=== PATIENT | female | born 1980 | race Caucasian/White ===

== ENCOUNTER 2020-01-14 13:32 | Outpatient (CLI) | payer BC, SELFPAY ==
[2020-01-14 14:30] LABS: Lithium 0.3 mmol/L (0.6-1.2)
== END 2020-01-14 13:33 | disposition home or self-care (01) ==
LOC: ANHSURGERY 13:38
PROVIDERS: Anesthesiology; PCP Family Medicine; Visit Provider Obstetrics & Gynecology
DX: Z51.81 Encounter for therapeutic drug level monitoring (principal)
CPT/HCPCS: 36415; 80178

== ENCOUNTER 2020-01-19 00:21 | Outpatient (CLI) | payer BC, SELFPAY ==
[2020-01-19 19:01] LABS: SARS-CoV-2 RNA PCR Negative
== END 2020-01-19 00:22 | disposition home or self-care (01) ==
LOC: ANHCOVIDDT 00:21
PROVIDERS: PCP Family Medicine; Visit Provider Obstetrics & Gynecology
DX: Z01.818 Encounter for other preprocedural examination (principal); Z11.59 Encounter for screening for other viral diseases
CPT/HCPCS: 87635; C9803; U0003

== ENCOUNTER 2020-01-21 03:26 | Day surgery (SDC) | payer BC, SELFPAY ==
[2020-01-12 12:30] VITALS: BMI 22.8
[2020-01-21] VITALS (9 sets, daily range): BP systolic 89–116; BP diastolic 61–76; PULSE 55–84; RESP 13–16; TEMP 36.4–36.9; O2SAT 99–100
[2020-01-21] MEDS: LACTATED RINGERS 1,000 ML 30 ML IV CONT ×2 (09:20→11:35)
[2020-01-21] MEDS: ACETAMINOPHEN 500 MG TABLET 1000 MG PO (09:25)
[2020-01-21] MEDS: KETOROLAC 15 MG/ML VIAL (*BKC) IV PUSH (09:26)
--- NOTE | 2020-01-21 09:32 | PM.IMHP ---
H&P: HPI History of Present Illness Chief complaint: Desires Sterilization Narrative: 39 y/o desiring permanent contraception. She desires no further childbearing. Review of Systems Review of Systems: All systems reviewed & are unremarkable except as noted in HPI and below PMFSH Past Medical History Medical History Bipolar 1 disorder IBS (irritable bowel syndrome) Surgical History Surgical History H/O breast surgery Family History Family History Other Asthma Family history of cardiac disorder Family history of thyroid disease Hypertension Social History Social History Smoking status: Never smoker Second hand tobacco smoke exposure: No Alcohol intake: current Drinks per week: 5 Spiritual care concerns: No Meds Home Medications and Allergies Home Medications Medication Instructions Recorded Confirmed Type amitriptyline 10 mg tablet 20 mg PO HS tablet 08/30/19 01/21/20 History beclomethasone dipropionate 80 80 mcg INHALATION BID 08/30/19 01/21/20 History mcg/actuation aerosol inhaler clonazepam 0.5 mg tablet 0.5 mg PO DAILY PRN 08/30/19 01/12/20 History cetirizine [Zyrtec] 10 mg PO DAILY 01/12/20 01/21/20 History lithium carbonate 300 mg PO BID 01/12/20 01/21/20 History Allergies Allergy/AdvReac Type Severity Reaction Status Date / Time latex AdvReac Mild IRRITATION Verified 01/21/20 08:58 Exam Const: Orientation/consciousness: patient oriented x3 Other: Well-developed, well-nourished female in no acute distress. Neck: Thyroid: thyroid normal Lymphatic: no lymphadenopathy noted (in neck, axilla or inguinal nodes) Resp: Effort & Inspection: normal respiratory effort Auscultation: clear to auscultation bilaterally Cardio: Rate: regular rate Rhythm: regular rhythm Heart sounds: S1 normal heart sound present and S2 normal heart sound present GI: Other: ABD: Soft, nontender, nondistended. No guarding or rebound tenderness. No hepatosplenomegaly. : General: Yes no CVA tenderness Other: External genitalia: normal female hair distribution, without lesion. Urethral meatus: no lesion, non prolapsed. Bladder: no mass, nontender Vagina: well-estrogenized, without lesion or discharge. No cystocele or rectocele. Cervix: no lesion or discharge. Uterus: small, anteverted, freely mobile, nontender Adnexa: no mass or tenderness. Anus/perineum: no lesions, nontender Back/Spine/Pelvis: Back: no CVA tenderness Skin: General skin exam: normal color and no rashes or lesions noted Neuro: General: patient oriented x3 Extrem: Other: Extremities: nontender with no edema Psych: Mental Status: mental status grossly normal Affect: normal affect Assessment and Plan Assessment and plan (1) Unwanted fertility: Code(s): Z30.09 - Encounter for other general counseling and advice on contraception Status: Acute Assessment and Plan: She understands there are temporary methods of contraception available to her. She understands that there are nonsurgical options as well as surgical options. She understands that tubal ligation will render her permanently sterile. She understands that there is a failure rate associated with tubal ligation, as well as an inherent ectopic gestation risk. Furthermore, she understands risks of surgery to include risks of anesthesia, risks of pain, infection, bleeding, blood products, thromboembolic phenomena and damage to adjacent structures such as bowel, bladder, ureters, blood vessels and nerves. She understands all these risks and elects to proceed with laparoscopic bilateral tubal ligation. She has received the [employer] pamphlet on surgical sterilization.
--- NOTE | 2020-01-21 10:11 | WPDANESEPPF ---
Anes - Initial Pre Proc Eval Procedure: Operation Date: 01/21/20 10:30 Proposed Procedures p Laparoscopic Bilateral Tubal Ligation With Fallopian Rings - Kar Borrero MD Date/Time: 01/21/20 10:11 Surgeon: Kar Borrero MD Pre Op Diagnosis: Desires Sterilization Patient Data Age: 39 Gender: F Height: 5 ft 6 in Weight: 64.6 kg Last Vital Signs Temp 97.5 F L 01/21/20 09:46 Pulse 78 01/21/20 09:46 Resp 16 01/21/20 09:46 BP 102/73 01/21/20 09:46 Pulse Ox 100 01/21/20 09:46 Allergies Allergy/AdvReac Type Severity Reaction Status Date / Time latex AdvReac Mild IRRITATION Verified 01/21/20 08:58 Home Medications Medication Instructions Recorded Confirmed Type amitriptyline 10 mg tablet 20 mg PO HS tablet 08/30/19 01/21/20 History beclomethasone dipropionate 80 80 mcg INHALATION BID 08/30/19 01/21/20 History mcg/actuation aerosol inhaler clonazepam 0.5 mg tablet 0.5 mg PO DAILY PRN 08/30/19 01/12/20 History cetirizine [Zyrtec] 10 mg PO DAILY 01/12/20 01/21/20 History lithium carbonate 300 mg PO BID 01/12/20 01/21/20 History Patient hx anesthesia problems: none Family hx anesthesia problems: none PMFSH Past Medical History Medical History (Updated 01/21/20 @ 10:11 by Christiano Camacho MD) Asthma Bipolar 1 disorder IBS (irritable bowel syndrome) Surgical History Surgical History H/O breast surgery Family History Family History Other Asthma Family history of cardiac disorder Family history of thyroid disease Hypertension Social History Social History Smoking status: Never smoker Second hand tobacco smoke exposure: No Alcohol intake: current Drinks per week: 5 Spiritual care concerns: No Anes - Eval Final PreProcedure Day of Procedure 01/21/20 10:11 Patient weight: normal Heart: regular rate and rhythm Lungs: clear to auscultation Airway: Mallampati scale class II Neurological: alert and oriented Last oral intake: >/= 8 hours ASA classification: II Emergent: no Anesthetic plan: proceed Anesthesia type and monitoring: general ETT and standard monitoring Informed Consent: The patient's anesthetic plan and its attendant risks and benefits were discussed with the patient/family/POA. Questions were solicited and answers provided to the satisfaction of the patient/family/POA.
--- NOTE | 2020-01-21 10:18 | SUR.PREOP ---
Up to bathroom.
--- NOTE | 2020-01-21 11:27 | PM.PROC ---
Procedure Note - Detailed Date of procedure: 01/21/20 Pre-op diagnosis: Desires Sterilization Desired sterility Post-op diagnosis: same Procedure performed: Laparoscopic bilateral tubal ligation with Falope rings Description of procedure: The patient was taken to the operating room where general endotracheal anesthesia was administered. She was prepared and draped in the usual sterile fashion in dorsal lithotomy position. The bladder was drained with a red rubber catheter. A sterile speculum was placed into the vagina. The anterior lip of the cervix was grasped with a single-tooth tenaculum. The acorn uterine manipulator was placed. The speculum was withdrawn. Gloves were changed and attention was turned the abdomen. An infraumbilical skin incision was made with a scalpel. The abdomen was tented and a 5mm bladeless trocar was advanced under direct laparoscopic visualization. Pneumoperitoneum was administered using carbon dioxide gas. A survey of the pelvis and abdomen revealed the findings noted above. A second skin incision was made in the midline above the symphysis pubis and an 8mm bladeless trocar was advanced under direct laparoscopic visualization. The fallopian tube on the right side was followed out to the fimbriated end for identification. It was then grasped in the midportion with the Falope ring applicator. The Falope ring was tented applied. A good loop of tube was noted to be distal to the ring. Hemostasis was excellent. The device was reloaded and the contralateral tube was similarly identified and ligated. An excellent application was noted here as well. A total of 6mL of 1% lidocaine was infiltrated into the serosa of the proximal tubes for postoperative anesthesia. The ports were withdrawn. The gas was allowed to escape. The skin incisions were reapproximated using interrupted subcuticular sutures of 4 0 Vicryl. Dermaflex was applied externally. The vaginal instrumentation was withdrawn and hemostasis was excellent here as well. Sponge, lap, needle and instrument counts were correct. The patient was awakened and taken to recovery room in stable condition. I was present and scrubbed through the entire procedure. Implants: Falope rings Anesthesia: GETA and local (1% lidocaine) Surgeon: Kar Borrero MD Estimated blood loss (mL): 5 Drains: No Packing: No Pathology: none sent Complications: None Condition: stable Disposition: PACU Findings: Unremarkable pelvis
--- NOTE | 2020-01-21 12:29 | SUR.PHASEI ---
1225; PT AWAKE AND RESTING QUIETLY. STATES PAIN 3-10. DOES NOT WANT IV PAIN MEDICINE AT THIS TIME. STATES ITS NOT THAT BAD PT READY TO SIT IN RECLINER AND HAVE PO FLUIDS
[2020-01-21] MEDS: ONDANSETRON INJ 4 MG/2 ML VIAL IV PUSH (13:37)
== END 2020-01-21 14:00 | disposition home or self-care (01) ==
PROVIDERS: PCP Family Medicine; Visit Provider Obstetrics & Gynecology
PROC: (CPT 58671; principal; 2020-01-21 10:30)
DX: Z30.2 Encounter for sterilization (principal); F31.9 Bipolar disorder, unspecified; J45.909 Unspecified asthma, uncomplicated; K58.9 Irritable bowel syndrome, unspecified
CPT/HCPCS: 58671; A4264; A9270; J1100; J1885; J2250; J2405; J2704; J7120

== ENCOUNTER → 2021-08-17 13:51 | Outpatient (CLI) | payer BC, SELFPAY ==
--- NOTE | ~2021-08-17 | MM_ITS ---
EXAMINATION: MM screening [facility] BI w sandoval HISTORY: Screening mammogram TECHNIQUE: Craniocaudal and mediolateral oblique 3-D tomosynthesis images were obtained and synthetic 2-D images were generated. CAD analysis was submitted and interpreted. COMPARISON: 02/24/2019, 12/08/2017 BREAST PARENCHYMAL COMPOSITION: There are scattered areas of fibroglandular density. FINDINGS: There is no evidence of suspicious mass, calcification, or architectural distortion to sugg est malignancy in either breast. There has been no suspicious interval change. IMPRESSION: 1. No mammographic evidence of malignancy. 2. Recommend routine screening mammography in one year. BI-RADS Category 1: Negative Reviewed, dictated and finalized at location A. IFIED LACTATION EDUCATOR
== END ==
PROVIDERS: PCP Family Medicine; Visit Provider Obstetrics & Gynecology
DX: Z12.31 Encounter for screening mammogram for malignant neoplasm of breast (principal)
CPT/HCPCS: 77063; 77067

== ENCOUNTER → 2021-08-17 13:54 | Outpatient (CLI) | payer BC, SELFPAY ==
--- NOTE | ~2021-08-17 | XR_ITS ---
XR_[id number]_CR DATE: 08/17/2021 14:55 INDICATION: Neck pain TECHNIQUE: Standing AP, lateral and open-mouth views COMPARISON: None FINDINGS: There is reversal of cervical curvature. There is moderate degenerative disc disease at C4-5 and severe degenerative disc disease at C5-6, wit h minimal retrolisthesis and moderately prominent posterior spurring at C5-6. C1 and C2 are normally aligned and the odontoid process is intact. No fracture, dislocation, locked f acet or prevertebral soft tissue swelling. IMPRESSION: Reversal of cervical curvature Moderate degenerative disc disease at C4-5 Severe degenerative disc disease, moderate posterior spurring and minimal retrolisthesis at C5-6 Reviewed, dictated and finalized at Location A. Reviewed, dictated and finalized at location A. STONE ERECTOR IMPRESSION: Reversal of cervical curvature Moderate degenerative disc disease at C4-5 Severe degenerative disc disease, moderate posterior spurring and minimal retro listhesis at C5-6
--- NOTE | ~2021-08-17 | XR_ITS ---
XR lumbar spine min 4V DATE: 08/17/2021 14:55 INDICATION: Low back pain TECHNIQUE: AP, lateral, bilateral oblique and coned lateral lumbosacral views COMPARISON: None FINDINGS: There is minimal lumbar levoscoliosis. Included lower thoracic and lumbar pedicles are intact. No fracture or bone destruction, spondylolysis or spondylolisthesis. There is minimal degenerative spurring of the lumbar spine. Lumbar and lumbosacral interspaces are re latively preserved. The sacroiliac joints are intact. IMPRESSION: Minimal levoscoliosis Minimal degenerative spurring Reviewed, dictated and finalized at location A. GER SHAREPOINT
== END ==
PROVIDERS: PCP Family Medicine; Visit Provider Nurse Practitioner
DX: M54.50 Low back pain, unspecified (principal); M53.82 Other specified dorsopathies, cervical region; M50.321 Other cervical disc degeneration at C4-C5 level; M77.8 Other enthesopathies, not elsewhere classified; M41.86 Other forms of scoliosis, lumbar region
CPT/HCPCS: 72040; 72110

== ENCOUNTER 2021-11-28 06:36 | Outpatient (CLI) | payer BC, SELFPAY ==
--- NOTE | ~2021-11-28 | MR_ITS ---
EXAMINATION: MR cervical spine wo con DATE: 11/28/2021 07:25 INDICATION: Neck pain. TECHNIQUE: Magnetic resonance imaging (MRI) of the cervical spine was performed without intravenous c ontrast. Sequences included sagittal T2-weighted FSE, sagittal T2-weighted FS FSE, sagittal T1-weight ed FSE, axial MERGE, and axial T2-weighted FSE. COMPARISON: Cervical spine radiographs 08/17/2021 FINDINGS: There is 4 degrees dextrocurvature of cervical spine. There is kyphosis of cervical spine. There is 2 mm retrolisthesis of C5 on C6. Vertebral body heights are normal. There is mildly decrease d disc height at C4-C5 and moderately decreased disc height at C5-C6 with endplate remodeling. The sp inal cord signal intensity is normal. The following disc levels are specifically discussed: C2-C3: The disc does not extend beyond the endplate margin. There is mild left uncovertebral joint os teoarthritis. There is mild right and moderate left facet joint osteoarthritis. There is no neural fo raminal stenosis. There is no central canal stenosis. C3-C4: The disc does not extend beyond the endplate margin. There is no uncovertebral joint osteoarth ritis. There is mild bilateral facet joint osteoarthritis. There is no neural foraminal stenosis. The re is no central canal stenosis. C4-C5: The disc is bulging with superimposed central extrusion. There is mild bilateral uncovertebral joint osteoarthritis. There is no facet joint osteoarthritis. There is no neural foraminal stenosis. There is mild central canal stenosis with ventral indentation of the spinal cord. C5-C6: The disc is bulging with superimposed left central extrusion. There is mild bilateral uncovert ebral joint osteoarthritis. There is no facet joint osteoarthritis. There is mild bilateral neural fo raminal stenosis. There is moderate central canal stenosis with ventral and dorsal indentation of the spinal cord. C6-C7: There is a central extrusion. There is no uncovertebral joint osteoarthritis. There is no face t joint osteoarthritis. There is no neural foraminal stenosis. There is no central canal stenosis. C7-T1: The disc does not extend beyond the endplate margin. There is no uncovertebral joint osteoarth ritis. There is moderate bilateral facet joint osteoarthritis. There is no neural foraminal stenosis. There is no central canal stenosis. IMPRESSION: 1. Moderate cervical spondylosis. Reviewed, dictated and finalized at location A.
--- NOTE | ~2021-11-28 | MR_ITS ---
EXAMINATION: MR lumbar spine wo con DATE: 11/28/2021 07:25 INDICATION: Dorsalgia, unspecified. TECHNIQUE: Magnetic resonance imaging (MRI) of the lumbar spine was performed without intravenous con trast. Sequences included sagittal T2-weighted FSE, sagittal T2-weighted FS FSE, sagittal T1-weighted FSE, and axial T2-weighted FSE. COMPARISON: Lumbar spine radiographs 08/17/2021 FINDINGS: There is 7 degrees levocurvature of lumbar spine. There is mild chronic anterior wedging of T12 vertebral body. There are Schmorl's nodes at most levels. L5 is a limbus vertebra. There is mild ly decreased disc height at L2-L3 and moderately decreased disc height at L5-S1. The distal spinal co rd signal intensity is normal. The conus medullaris is at L1. The following disc levels are specifica lly discussed: L1-L2: The disc does not extend beyond the endplate margin. There is mild bilateral facet joint osteo arthritis. There is no neural foraminal stenosis. There is no central canal stenosis. L2-L3: The disc is bulging with superimposed central extrusion. There is mild bilateral facet joint o steoarthritis. There is mild bilateral neural foraminal stenosis. There is mild central canal stenosi s. L3-L4: The disc does not extend beyond the endplate margin. There is mild bilateral facet joint osteo arthritis. There is no neural foraminal stenosis. There is no central canal stenosis. L4-L5: The disc is bulging. There is moderate right and mild left facet joint osteoarthritis. There i s mild bilateral neural foraminal stenosis. There is no central canal stenosis. L5-S1: The disc is bulging and has an annular fissure. There is mild left facet joint osteoarthritis. There is mild left neural foraminal stenosis. There is mild central canal stenosis. IMPRESSION: 1. Moderate lumbar spondylosis. Reviewed, dictated and finalized at location A.
== END 2021-11-28 06:37 | disposition home or self-care (01) ==
PROVIDERS: PCP Nurse Practitioner; Visit Provider Nurse Practitioner
DX: M54.2 Cervicalgia (principal); M54.9 Dorsalgia, unspecified; M47.816 Spondylosis without myelopathy or radiculopathy, lumbar region; M47.812 Spondylosis without myelopathy or radiculopathy, cervical region
CPT/HCPCS: 72141; 72148

== ENCOUNTER → 2022-02-01 12:07 | Outpatient (CLI) | payer BC, SELFPAY ==
--- NOTE | ~2022-02-01 | XR_ITS ---
EXAMINATION: XR foot LT 2V INDICATION: Left foot pain TECHNIQUE: Two views of the left foot are obtained. COMPARISON: None available FINDINGS: Bone alignment is normal. There is no fracture. The soft tissues are unremarkable. No radio paque foreign body is identified. There is mild osteoarthritis at the first metatarsophalangeal joint . A plantar calcaneal enthesophyte is noted. IMPRESSION: 1. No acute osseous abnormality or radiopaque foreign body identified. Reviewed, dictated and finalized at location L.
== END ==
PROVIDERS: PCP Family Medicine; Visit Provider Nurse Practitioner Family
DX: S91.339A Puncture wound without foreign body, unspecified foot, initial encounter (principal)
CPT/HCPCS: 73620

== ENCOUNTER → 2022-12-06 10:38 | Outpatient (CLI) | payer OTHER, SELFPAY ==
--- NOTE | ~2022-12-06 | MM_ITS ---
EXAMINATION: MM screening [facility] BI w sandoval HISTORY: Screening mammogram TECHNIQUE: Craniocaudal and mediolateral oblique 3-D tomosynthesis images were obtained and synthetic 2-D images were generated. CAD analysis was submitted and interpreted. COMPARISON: August 17, 2021, 02/23/2019, 12/08/2017 bilateral screening mammogram examinations BREAST PARENCHYMAL COMPOSITION: There are scattered areas of fibroglandular density. FINDINGS: Right breast There is no evidence of suspicious mass, calcification, or architectural disto rtion to suggest malignancy in either breast. There has been no suspicious interval change. Left breast: There is asymmetry in the anterior mid inner left breast. Diagnostic left mammogram is r ecommended, with ultrasound if required IMPRESSION: 1. Left mammographic asymmetry 2. Diagnostic left mammogram is recommended, with ultrasound if required BI-RADS Category 0: Incomplete: Needs additional imaging evaluation. Reviewed, dictated and finalized at location A.
== END ==
PROVIDERS: PCP Family Medicine; Visit Provider Obstetrics & Gynecology
DX: Z12.31 Encounter for screening mammogram for malignant neoplasm of breast (principal); R92.8 Other abnormal and inconclusive findings on diagnostic imaging of breast
CPT/HCPCS: 77063; 77067

== ENCOUNTER 2022-12-18 15:27 | Outpatient (CLI) | payer OTHER, SELFPAY ==
--- NOTE | ~2022-12-18 | MMUS_ITS ---
EXAMINATION: MM diagnostic [facility] LT w sandoval, US breast LT limited HISTORY: Left mammographic asymmetry reported on 12/06/2022 screening mammogram TECHNIQUE: Additional 3-D tomosynthesis images of the left breast were performed and synthetic 2-D im ages were generated. CAD analysis was submitted and interpreted. High resolution complete left breast ultrasound examination including all 4 quadrants and subareolar area was performed. COMPARISON: 12/06/2022 bilateral screening mammogram FINDINGS: MAMMOGRAPHIC FINDINGS: No suspicious mass or architectural distortion, malignant calcification, skin thickening or retractio n is evident. The areas of asymmetry reported on 12/06/2022 screening mammogram appear to compress out on these suppl emental coned compression views. ULTRASOUND: No suspicious mass or shadowing, cyst or other significant sonographic abnormality of the left breast is detected. IMPRESSION: 1. No mammographic evidence of malignancy 2. Routine annual mammographic screening is recommended BI-RADS Category 1: Negative Reviewed, dictated and finalized at location A. IMPRESSION: 1. No mammographic evidence of malignancy 2. Routine annual mammographic screening is recommended BI-RADS Category 1: Negative
== END 2022-12-18 15:28 | disposition home or self-care (01) ==
PROVIDERS: PCP Family Medicine; Visit Provider Obstetrics & Gynecology
DX: R92.8 Other abnormal and inconclusive findings on diagnostic imaging of breast (principal)
CPT/HCPCS: 76642; 77061; 77065; G0279

== ENCOUNTER 2023-02-19 12:16 | Outpatient (NON) | payer OTHER, SELFPAY ==
[2023-02-19 13:22] LABS: Toxigenic C. Diff NEGATIVE (NEGATIVE)
== END 2023-02-19 12:17 | disposition home or self-care (01) ==
PROVIDERS: PCP Family Medicine; Visit Provider Nurse Practitioner Family
DX: R19.7 Diarrhea, unspecified (principal)
CPT/HCPCS: 87045; 87269; 87427; 87449; 87493

== ENCOUNTER 2023-02-28 14:27 | Outpatient (CLI) | payer OTHER, SELFPAY ==
[2023-02-28 17:07] LABS: Basophils Absolute Auto 0.1 K/mm3 (0.0-0.1); Basophils Percent Auto 0.6 % (0.2-1.2); Eosinophils Absolute Auto 0.1 K/mm3 (0-0.3); Eosinophils Percent Auto 0.6 % (0-4.4); Hematocrit 39.4 % (37.0-47.0); Hemoglobin 12.6 g/dL (12.0-15.0); Immature Granulocyte Absolute 0.02 K/mm3 (0.00-0.031); Immature Granulocyte Percent A 0.2 % (0-0.5); Lymphocytes Absolute Auto 1.47 K/mm3 (0.9-3.2); Lymphocytes Percent Auto 17.3 % (18.3-44.2); Mean Corpuscular Hemoglobin 29.4 pg (26-34); Mean Corpuscular Volume 91.8 fl (80-100); Monocytes Absolute Auto 0.5 K/mm3 (0.1-0.6); Monocytes Percent Auto 5.9 % (2.6-8.5); Neutrophils Absolute Auto 6.4 K/mm3 (1.3-6.7); Neutrophils Percent Auto 75.4 % (45.5-73.1); Platelet Count Result 358 k/mm3 (150-375); Red Blood Count 4.29 M/mm3 (4.2-5.4); Red Cell Distribution Width 12.6 % (11.5-14.5); White Blood Count 8.5 K/mm3 (4.5-10.0)
[2023-02-28 17:14] LABS: Hemoglobin A1C 4.8 % (<5.7)
[2023-02-28 17:30] LABS: Alanine Aminotransferase 32 U/L (6-35); Albumin Level 4.1 g/dL (3.5-5.1); Alkaline Phosphatase 64 U/L (38-126); Anion Gap 3 mmol/L (8-16); Aspartate Amino Transferase 46 U/L (14-36); Bilirubin,Total 0.4 mg/dL (0.2-1.3); Blood Urea Nitrogen 9 mg/dL (7-17); Carbon Dioxide 30 mmol/L (22-30); Chloride 102 mmol/L (98-107); Estimated Glomerular Filt Rate > 60; Glucose 83 mg/dL (65-110); Potassium 4.2 mmol/L (3.4-5.0); Sodium 135 mmol/L (137-145)
[2023-02-28 17:55] LABS: Thyroid Stimulating Hormone 0.739 uIU/mL (0.465-4.680)
[2023-03-03 23:38] LABS: Vitamin D 1,25 (OH)2 Total 62 pg/mL (18-72); Vitamin D2 1,25 (OH)2 <8 pg/mL; Vitamin D3 1,25 (OH)2 62 pg/mL
== END 2023-02-28 14:28 | disposition home or self-care (01) ==
LOC: ANHGOSHLAB 14:30
PROVIDERS: PCP Family Medicine; Visit Provider Nurse Practitioner Family
DX: R42 Dizziness and giddiness (principal); E55.9 Vitamin D deficiency, unspecified
CPT/HCPCS: 36415; 80053; 82607; 82652; 83036; 84443; 85025

== ENCOUNTER 2024-04-22 09:50 | Day surgery (SDC) | payer OTHER, SELFPAY ==
[2024-03-18 14:59] VITALS: BMI 28.8
[2024-04-05 11:35] VITALS: BMI 28.8
--- NOTE | 2024-04-22 07:00 | WPDANESEPPF ---
Anes - Initial Pre Proc Eval Procedure: Operation Date: 04/22/24 11:45 Proposed Procedures p Esophagogastroduodenoscopy - Chris Huynh MD Date/Time: 04/22/24 07:00 Surgeon: Chris Huynh MD Pre Op Diagnosis: Dysphonia Patient Data Age: 44 Gender: F Height: 1.68 m Weight: 81 kg Allergies Allergy/AdvReac Type Severity Reaction Status Date / Time latex AdvReac Mild IRRITATION Verified 04/22/24 10:28 Home Medications Medication Instructions Recorded Confirmed Type beclomethasone dipropionate 80 80 mcg inhalation BID 08/30/19 04/22/24 History mcg/actuation aerosol inhaler lithium carbonate 300 mg 300 mg PO BID 01/12/20 04/22/24 History tablet,extended release amitriptyline 25 mg tablet 25 mg PO QHS 3 months #90 tabs 01/12/24 04/22/24 Rx mupirocin 2 % topical ointment 1 applic topical TID #22 grams 03/11/24 04/22/24 Rx omeprazole 40 mg capsule,delayed 40 mg PO DAILY 3 months #90 caps 03/12/24 04/22/24 Rx release tirzepatide 5 mg/0.5 mL 5 mg subcut WEEKLY 04/05/24 04/22/24 History subcutaneous pen injector ([facility]ryn) Patient hx anesthesia problems: none Family hx anesthesia problems: none Results Review: All pre-operative results and documents have been reviewed as part of the pre-operative evaluation. [facility] Past Medical History Medical History (Updated 03/12/24 @ 09:47 by REJI CordovaN-C) ADHD Asthma Bipolar 1 disorder Cervical spondylolysis Dysphagia High body mass index (BMI) IBS (irritable bowel syndrome) Lumbar spondylosis (~03/2022) Mitral valve prolapse Nausea Puncture wound of foot with complication (~01/2022) Surgical History Surgical History History of breast lift 2018 History of tubal ligation (~2019) Family History Family History Other Asthma Family history of cardiac disorder Family history of thyroid disease Hypertension Social History Social History Social History: Verna is , she has 2 children. She is a dentist, has her own practice. Smoking status: Never smoker Second hand tobacco smoke exposure: No Alcohol intake: current Drinks per week: 5 Alcohol use details: moderation of all types Substance use: never Substance use type: does not use Lack of Transportation: No Lack of Food: Never True Current Housing: I Have Housing Concerned About Future Housing: No Difficulty Paying Gas/Electric Bills: No Difficulty Paying for Meds: No Currently Unemployed: No Education: Master's Degree or Higher Difficulty w/ Childcare or Family Care: No Living arrangements: with family Occupation/Education: occupation Gender identity (if verbalized by the patient): Female Spiritual care concerns: No Anes - Eval Final PreProcedure Day of Procedure 04/22/24 07:00 Patient weight: overweight Heart: regular rate and rhythm Lungs: clear to auscultation Airway: Mallampati scale class II Neurological: alert and oriented Last oral intake: >/= 8 hours ASA classification: III Emergent: no Anesthetic plan: proceed Anesthesia type and monitoring: general GIVS and standard monitoring Results Review: All pre-operative results and documents have been reviewed as part of the pre-operative evaluation. Informed Consent: The patient's anesthetic plan and its attendant risks and benefits were discussed with the patient/family/POA. Questions were solicited and answers provided to the satisfaction of the patient/family/POA.
[2024-04-22 10:30] VITALS: BP 107/79; PULSE 100; RESP 20; TEMP 37.3; O2SAT 100
[2024-04-22] MEDS: LACTATED RINGERS 1,000 ML 150 ML IV CONT (10:34)
--- NOTE | 2024-04-22 10:50 | PM.HPGS ---
History of Present Illness History of Present Illness Consent: Risks, benefits, and alternatives have been discussed and questions answered. Patient agrees to proceed with procedure. Chief complaint: Dysphonia Narrative: Verna Ravi is a 44 year old female EGD. Patient says that later in the day her voice changes. She sometimes has difficulty speaking. Her voice becomes weak. She has some indigestion this is improved on a trial of proton pump inhibitor. Because of these symptoms an EGD has been requested. She has not seen ENT evaluation. Patient denies any heartburn. Her family history is noncontributory. Past medical history is significant for bipolar illness. Patient works as a dentist. Review of Systems Review of Systems: All systems reviewed & are unremarkable except as noted in HPI and below PMFSH Past Medical History Medical History (Updated 03/12/24 @ 09:47 by KAUSHIK Cordova) ADHD Asthma Bipolar 1 disorder Cervical spondylolysis Dysphagia High body mass index (BMI) IBS (irritable bowel syndrome) Lumbar spondylosis (~03/2022) Mitral valve prolapse Nausea Puncture wound of foot with complication (~01/2022) Surgical History Surgical History History of breast lift 2018 History of tubal ligation (~2019) Family History Family History Other Asthma Family history of cardiac disorder Family history of thyroid disease Hypertension Social History Social History Social History: Verna is , she has 2 children. She is a dentist, has her own practice. Smoking status: Never smoker Second hand tobacco smoke exposure: No Alcohol intake: current Drinks per week: 5 Alcohol use details: moderation of all types Substance use: never Substance use type: does not use Lack of Transportation: No Lack of Food: Never True Current Housing: I Have Housing Concerned About Future Housing: No Difficulty Paying Gas/Electric Bills: No Difficulty Paying for Meds: No Currently Unemployed: No Education: Master's Degree or Higher Difficulty w/ Childcare or Family Care: No Living arrangements: with family Occupation/Education: occupation Gender identity (if verbalized by the patient): Female Spiritual care concerns: No Meds Home Medications and Allergies Home Medications Medication Instructions Recorded Confirmed Type beclomethasone dipropionate 80 80 mcg inhalation BID 08/30/19 04/22/24 History mcg/actuation aerosol inhaler lithium carbonate 300 mg 300 mg PO BID 01/12/20 04/22/24 History tablet,extended release amitriptyline 25 mg tablet 25 mg PO QHS 3 months #90 tabs 01/12/24 04/22/24 Rx mupirocin 2 % topical ointment 1 applic topical TID #22 grams 03/11/24 04/22/24 Rx omeprazole 40 mg capsule,delayed 40 mg PO DAILY 3 months #90 caps 03/12/24 04/22/24 Rx release tirzepatide 5 mg/0.5 mL 5 mg subcut WEEKLY 04/05/24 04/22/24 History subcutaneous pen injector (Bryn) Allergies Allergy/AdvReac Type Severity Reaction Status Date / Time latex AdvReac Mild IRRITATION Verified 04/22/24 10:28 Vital Signs Vital Signs - 24 hr 04/22/24 10:30 Temperature 99.1 F Pulse Rate 100 Respiratory Rate 20 Blood Pressure 107/79 Pulse Oximetry 100 Oxygen Delivery Room Air Exam Narrative: Physical exam reveals patient to be alert. Vital signs stable. HEENT exam is unremarkable. Patient is anicteric. Lungs are clear to auscultation and to percussion heart is without murmur or extra sounds. Abdomen is soft, bowel sounds are present ,soft nontender with no organomegaly. Rectal exam is deferred Assessment and Plan Assessment and plan (1) Hoarseness of voice: Code(s): R49.0 - Dysphonia Status: Acute Assessment and Plan: Patient reports that her vo
[2024-04-22 12:20] VITALS: BP 86/62; PULSE 95; RESP 16; O2SAT 100
[2024-04-22 12:30] VITALS: BP 91/72; PULSE 89; RESP 16; O2SAT 100
[2024-04-22 12:40] VITALS: BP 107/78; PULSE 85; RESP 20; O2SAT 100
--- NOTE | 2024-04-22 12:45 | WPDANESPN ---
Anes - Prog Note Post-Op Date/Time: 04/22/24 12:45 Cardiovascular status: normal Respiratory status: normal Airway patency: baseline Mental status: baseline Post-Op hydration status: normal Vital Signs: Last Vital Signs Temp 37.3 C 04/22/24 10:30 Pulse 89 04/22/24 12:30 Resp 16 04/22/24 12:20 BP 91/7 L 04/22/24 12:30 Pulse Ox 100 04/22/24 12:30 O2 Del Method Room Air 04/22/24 12:30 Pain Score (VAS): 0 I/O: Intake & Output 04/21/24 04/22/24 04/22/24 23:59 07:59 15:59 Intake Total 200 Balance 200 Post-procedural complaints: none Patient Feedback: Patient satisfied with anesthetic care. Other Findings: Patient vital signs back to baseline. Patient denies nausea and vomiting. Patient's pain under control. Patient OK for discharge.
== END 2024-04-22 12:57 | disposition home or self-care (01) ==
PROVIDERS: PCP Family Medicine; Visit Provider Internal Medicine Gastroenterology
PROC: 0DJ08ZZ Inspection of Upper Intestinal Tract, Via Natural or Artificial Opening Endoscopic (ICD-10-PCS; CPT 43235; principal; 2024-04-22 11:45)
DX: R49.0 Dysphonia (principal)
CPT/HCPCS: 43235

== ENCOUNTER 2024-07-25 15:44 | Emergency (ER) | payer OTHER, SELFPAY ==
[2024-07-25 16:23] VITALS: BP 125/83; PULSE 95; RESP 16; TEMP 36.5; O2SAT 100
[2024-07-25 16:32] LABS: EDSTREPNEGPOS1 Negative (Negative)
--- NOTE | 2024-07-25 16:40 | ED_ITS ---
HPI - URI/Sore Throat General Chief Complaint: Upper Respiratory Infection Stated Complaint: Sore Throat/Cough Time Seen by Provider: 07/25/24 16:31 Source: patient and RN notes reviewed Mode of arrival: ambulatory Limitations: no limitations History of Present Illness HPI Narrative: Patient presents today complaining of a 2 day history of sore throat and dry cough. Denies any additional symptoms to include shortness of breath or fever. She had a negative home COVID test yesterday. Currently rates her pain 2/10 and has been using cough drops without much relief. 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 ?Medication ?Instructions ?Recorded ?Confirmed ?Last Taken ?Type beclomethasone dipropionate 80 80 mcg inhalation BID 08/30/19 07/25/24 01/21/20 07:45 History mcg/actuation aerosol inhaler lithium carbonate 300 mg 300 mg PO BID 01/12/20 07/25/24 04/22/24 History tablet,extended release tirzepatide 5 mg/0.5 mL 5 mg subcut WEEKLY 04/05/24 07/16/24 Unknown History subcutaneous pen injector (Mounjaro) Allergies Allergy/AdvReac Type Severity Reaction Status Date / Time latex AdvReac Mild IRRITATION Verified 07/25/24 16:32 Review of Systems Review of Systems: CONSTITUTIONAL: Denies body aches, fever, chills, or sweats. EYES: Denies visual changes, redness, or discharge. ENT: Denies rhinorrhea, congestion, or otalgia.+ sore throat CARDIOVASCULAR: Denies chest pain, palpitations, or edema. RESPIRATORY: Denies dyspnea.+ cough GASTROINTESTINAL: Denies abdominal pain, nausea, vomiting, or diarrhea. GENITOURINARY: Denies dysuria or hematuria. SKIN: Denies rash, itching, or wounds. MUSCULOSKELETAL: Denies back pain, joint pain, or myalgia. NEUROLOGIC: Denies headache, numbness, tingling, or weakness. PSYCH: Denies depression or anxiety. [facility] Past Medical History Medical History GERD (gastroesophageal reflux disease) Dysphagia Nausea Mitral valve prolapse ADHD Cervical spondylolysis High body mass index (BMI) Lumbar spondylosis (~03/2022) Puncture wound of foot with complication (~01/2022) Asthma IBS (irritable bowel syndrome) Bipolar 1 disorder Surgical History Surgical History History of breast lift 2018 History of tubal ligation (~2019) Family History Family History Other Asthma Family history of cardiac disorder Family history of thyroid disease Hypertension Social History Social History Social History: Verna is , she has 2 children. She is a dentist, has her own practice. Smoking status: Never smoker Second hand tobacco smoke exposure: No Alcohol intake: current Drinks per week: 5 Alcohol use details: moderation of all types Substance use: never Substance use type: does not use Lack of Transportation: No Lack of Food: Never True Current Housing: I Have Housing Concerned About Future Housing: No Difficulty Paying Gas/Electric Bills: No Difficulty Paying for Meds: No Currently Unemployed: No Education: Master's Degree or Higher Difficulty w/ Childcare or Family Care: No Living arrangements: with family Occupation/Education: occupation Gender identity (if verbalized by the patient): Female Spiritual care concerns: No Comments At time of signature, I have reviewed and agree with nursing past medical, surgical, social and family history unless otherwise noted. Please see nursing chart for further information. There is no relevant family history pertinent to the presenting complaint Exam Narrative: GENERAL: Mildly ill-appearing, well-nourished, and in no acute distress. HEAD: Normocephalic, atraumatic. EYES: EOMI. No redness or drainage. Conjunctivae normal. ENT: Mucous membranes pink and moist. Nares clear. No rhinorrhea. TMs normal bilaterally. Throat erythematous without edema or exudate. Uvula midline. NECK: Normal AROM. Supple. No lymphadenopathy. CHEST: No respiratory distress. Clear to auscultation. HEART: Regular rate and rhythm. No murmur appreciated. EXTREMITIES: Normal range of motion. No edema. SKIN: Warm, dry, no rash. Capillary refill normal. Normal skin turgor. NEURO: No focal deficits. Alert and oriented x3. Gait steady. PSYCH: Normal affect. No signs of depression or anxiety. Course Course Level of Care: [facility] Visit Vital Signs Vital signs: Vital Signs Temperature 97.7 F 07/25/24 16:23 Pulse Rate 95 07/25/24 16:23 Respiratory Rate 16 07/25/24 16:23 Blood Pressure 125/83 07/25/24 16:23 Pulse Oximetry 100 07/25/24 16:23 Temperature 97.7 F 07/25/24 16:23 Pulse Rate 95 07/25/24 16:23 Respiratory Rate 16 07/25/24 16:23 Blood Pressure 125/83 07/25/24 16:23 Pulse Oximetry 100 07/25/24 16:23 Reviewed MDM - URI/Sore Throat MDM Narrative Medical decision making narrative: Testing negative. Strep culture pending. Symptoms likely viral in etiology. Discussed [id number] medication use and duration of illness. Prescription for benzonatate sent to pharmacy. Anticipatory guidance given. Differential Diagnosis Differential diagnosis: Likely upper respiratory infection, otitis media, viral infection, bronchitis, influenza, pharyngitis and other (Strep throat, COVID) Lab Data Attestation: I reviewed the patient's lab results. Lab results narrative: Influenza and COVID-19 negative Labs: Lab Results 07/25/24 Range/Units 16:30 POC Grp A Strep Screen Negative (Negative) Critical Care Time Critical Care Time Critical Care Time: No Discharge Plan Discharge Clinical Impression: Upper respiratory infection Qualifiers: URI type: unspecified URI Qualified Code(s): J06.9 - Acute upper respiratory infection, unspecified Patient Disposition: Home, Self-Care Condition: Stable Instructions: Upper Respiratory Infection (DC) Additional Instructions: Your COVID-19, influenza, and rapid strep swab or negative today at [facility]. You will be notified in a few days if the culture comes back positive for strep, and appropriate antibiotics will be called in for you at that time. Your symptoms are likely due to a viral illness, which is not treated with antibiotics. Viral symptoms can be present for up to 7-10 days. Take Tylenol or ibuprofen for fever or pain. Take the Tessalon Perles for cough. Rest and stay hydrated. Follow up with your PCP in 7 days if symptoms are not improving. Go to the ER immediately if you have any difficulty breathing or swallowing. Your blood pressure was elevated above 120/80 today at Urgent Care. This puts you above the threshold for follow up. Please schedule a followup visit with your personal physician as soon as possible, for further evaluation and treatment. Even blood pressure exceeding 120/80 may indicate pre-hypertension. Patient Language: [place] Prescriptions: New benzonatate 200 mg capsule 200 mg PO TID PRN (Reason: cough) Qty: 30 0RF No Action beclomethasone dipropionate 80 mcg/actuation aerosol 80 mcg INHALATION BID omeprazole 40 mg capsule,delayed release(DR/EC) 40 mg PO DAILY 90 Days Qty: 90 3RF amitriptyline 25 mg tablet 25 mg PO QHS 90 Days Qty: 90 3RF lithium carbonate 300 mg tablet extended release 300 mg PO BID Mounjaro 5 mg/0.5 mL Pen Injector 5 mg SUBCUT WEEKLY Follow-up/Referrals: PHYSICIAN,DRAGLINE OILER [Primary Care Provider] - Time of Disposition: 16:42
[2024-07-25 16:42] LABS: EDCOVIDSCREEN Negative (Negative); EDINFLUASCREEN Negative (Negative); EDINFLUBSCREEN Negative (Negative)
== END 2024-07-25 16:50 | disposition home or self-care (01) ==
PROVIDERS: Emergency Provider Nurse Practitioner
DX: J06.9 Acute upper respiratory infection, unspecified (principal); Z20.822 Contact with and (suspected) exposure to COVID-19; K21.9 Gastro-esophageal reflux disease without esophagitis; I34.1 Nonrheumatic mitral (valve) prolapse; M47.812 Spondylosis without myelopathy or radiculopathy, cervical region; M47.816 Spondylosis without myelopathy or radiculopathy, lumbar region; J45.909 Unspecified asthma, uncomplicated; F31.9 Bipolar disorder, unspecified
CPT/HCPCS: 87081; 87426; 87804; 87880; 99213; G0463

== ENCOUNTER 2024-08-21 09:52 | Outpatient (CLI) | payer OTHER, SELFPAY ==
--- NOTE | ~2024-08-21 | MM_ITS ---
EXAMINATION: MM screening bonnie BI w sandoval HISTORY: Screening TECHNIQUE: Craniocaudal and mediolateral oblique 3-D tomosynthesis images were obtained and synthetic 2-D images were generated. CAD analysis was submitted and interpreted. COMPARISON: Comparison to multiple prior studies sequentially, with oldest reviewed study dated 10/2017. BREAST PARENCHYMAL COMPOSITION: Not dense: There are scattered areas of fibroglandular density. FINDINGS: There is no evidence of suspicious mass, calcification, or architectural distortion to sugg est malignancy in either breast. There has been no suspicious interval change. IMPRESSION: 1. No mammographic evidence of malignancy. 2. Recommend routine screening mammography in one year. BI-RADS Category 1: Negative Reviewed, dictated and finalized at location B. RT/EXPORT CLERK
== END 2024-08-21 09:53 | disposition home or self-care (01) ==
PROVIDERS: PCP Obstetrics & Gynecology; Visit Provider Obstetrics & Gynecology
DX: Z12.31 Encounter for screening mammogram for malignant neoplasm of breast (principal)
CPT/HCPCS: 77063; 77067

== ENCOUNTER 2025-04-28 16:30 | Outpatient (CLI) | payer OTHER, SELFPAY ==
--- NOTE | ~2025-04-28 | XR_ITS ---
XR lumbar spine min 4V Indication: Low back pain, pain x 2 weeks, several year pain, no inj Comparison: None Findings: Levoconvex scoliosis. Mild loss of vertebral height, no fracture or subluxation. Moderate loss of disc height at L4-5 and L5-S1. Soft tissues unremarkable Impression: No acute abnormality. Reviewed, dictated and finalized at location P. Impression: No acute abnormality.
== END 2025-04-28 16:31 | disposition home or self-care (01) ==
LOC: GOSHIMG 16:30
PROVIDERS: PCP Family Medicine; Visit Provider Family Medicine
DX: M54.50 Low back pain, unspecified (principal)
CPT/HCPCS: 72110